=== PATIENT | male | born 1975 | race Caucasian/White ===

== ENCOUNTER 2018-05-21 09:31 | Emergency (ER) | payer MEDICAID ==
[~2018-05-21] VITALS: Ht 172.7 cm; Wt 89.6 kg
[~2018-05-21 09:31] MED LIST: ACET-8386 PO; AMOX-999 PO; COL250 PO; FLOR250 PO; INSU100S45 SUBQ; INSU100S55 SC; METF500T2 PO
--- NOTE | 2018-05-21 09:34 | NUR ---
PT AMBULATES TO BED 4
[2018-05-21 09:38] VITALS: BP 162/102
--- NOTE | 2018-05-21 09:40 | NUR ---
42/ M BIB SLEF, C/O OF RIGHT FACIAL PAIN AND SWELLING, PAIN 10/10 FOR X2 WEEKS. PAIN IS CONSTANT, DESCRIBES BURNING. PATIENT STATES HE FEELS A BALL ABOVE HIS CHEEK BONE. DENIES NVD, SOB, FEVERS, BLURRY VISION, WEAKNESS, OR DIZZINESS,DIFFICULTY SWALLOWING, OR TRUAMA TO THE FACE. PATIENT IS AOX4, STEADY GAIT, SAFETY PRECAUTIONS IN PLACE.
[2018-05-21] MEDS ORDERED: KETOROLAC 30 MG/ML VIAL IM ONE (09:45)
[2018-05-21] MEDS ORDERED: AMOXICILLIN 500 MG CAP PO ONE (09:45)
[2018-05-21] MEDS ORDERED: KETOROLAC 15 MG/ML VIAL IVP ONE (09:45)
--- NOTE | 2018-05-21 10:00 | NUR ---
DR. RIOS AWARE OF BLOOD SUGAR, NO FURTHER ACTION NEEDED.
--- NOTE | 2018-05-21 10:00 | NUR ---
Renee marinelli in [facility] - 05/21/18 [email or web address] RIOS AWARE OF BLOOD SURGERY.
--- NOTE | 2018-05-21 10:06 | NUR ---
Patient discharged with v/s stable. Written and verbal after care instructions given and explained. Patient alert, oriented and verbalized understanding of instructions. Ambulatory with steady gait. All questions addressed prior to discharge. ID band removed. Patient advised to follow up with PMD. Rx of Motrin and Amoxicillin given. Patient educated on indication of medication including possible reaction and side effects. Opportunity to ask questions provided and answered.
[2018-05-21 10:07] VITALS: BP 162/102
== END 2018-05-21 10:15 | disposition home or self-care (01) ==
LOC: MED 09:31
DX: K04.7 Periapical abscess without sinus (principal); R03.0 Elevated blood-pressure reading, without diagnosis of hypertension; E11.9 Type 2 diabetes mellitus without complications; Z79.4 Long term (current) use of insulin; Z79.2 Long term (current) use of antibiotics; Z79.891 Long term (current) use of opiate analgesic; Z79.899 Other long term (current) drug therapy
CPT/HCPCS: 82948; 96372; 99283; J1885

== ENCOUNTER 2018-11-18 23:24 | Emergency (ER) | payer MEDICAID ==
[~2018-11-18] VITALS: Ht 162.6 cm; Wt 86.2 kg
[2018-11-18 23:35] VITALS: BP 185/86
[2018-11-19] MEDS ORDERED: IBUPROFEN 600 MG TAB PO ONE (00:30)
--- NOTE | 2018-11-19 00:35 | NUR ---
ASSUMED CARE OF PT AT THIS TIME. C/O LEFT LOWER DENTAL PAIN X 1 DAY. AAOX4 WITH EVEN AND STEADY GAIT; PATIENT STATES PAIN OF 6/10; VSS; PATIENT POSITIONED FOR COMFORT; HOB ELEVATED; BEDRAILS UP X2; BED DOWN. ER MD MADE AWARE OF PT STATUS. WILL CONTINUE TO MONITOR.
--- NOTE | 2018-11-19 00:45 | NUR ---
Patient discharged with v/s stable. Written and verbal after care instructions given and explained. Patient alert, oriented and verbalized understanding of instructions. Ambulatory with steady gait. All questions addressed prior to discharge. ID band removed. Patient advised to follow up with PMD. Rx of NAPROSYN AND PENICILLIN given. Patient educated on indication of medication including possible reaction and side effects. Opportunity to ask questions provided and answered.
== END 2018-11-19 00:45 | disposition home or self-care (01) ==
LOC: MED 23:24
DX: K08.89 Other specified disorders of teeth and supporting structures (principal); E11.9 Type 2 diabetes mellitus without complications; F17.200 Nicotine dependence, unspecified, uncomplicated; F12.10 Cannabis abuse, uncomplicated; Z98.890 Other specified postprocedural states; Z79.899 Other long term (current) drug therapy; Z79.4 Long term (current) use of insulin
CPT/HCPCS: 99283

== ENCOUNTER 2018-11-19 12:05 | Emergency (ER) | payer MEDICAID ==
[~2018-11-19] VITALS: Ht 162.6 cm; Wt 86.2 kg
[2018-11-19 12:21] VITALS: BP 155/94
--- NOTE | 2018-11-19 12:33 | NUR ---
PT AMBULATED TO ER BED 10
--- NOTE | 2018-11-19 13:19 | NUR ---
DR. SHEN BEDSIDE EVALUATING PT
[2018-11-19] MEDS ORDERED: CLINDAMYCIN 150 MG CAP PO ONE (13:25)
[2018-11-19] MEDS ORDERED: ACETAMINOPHEN EXTRA STRENGTH 500 MG TAB PO ONE (13:25)
[2018-11-19 14:40] VITALS: BP 148/92
--- NOTE | 2018-11-19 14:40 | NUR ---
Patient discharged with v/s stable. Written and verbal after care instructions given and explained. Patient alert, oriented and verbalized understanding of instructions. Ambulatory with steady gait. All questions addressed prior to discharge. ID band removed. Patient advised to follow up with PMD. Rx of NORCO, CLINDAMYCIN given. Patient educated on indication of medication including possible reaction and side effects. Opportunity to ask questions provided and answered.
== END 2018-11-19 14:40 | disposition home or self-care (01) ==
LOC: MED 12:05
DX: K03.81 Cracked tooth (principal); K02.9 Dental caries, unspecified; E11.9 Type 2 diabetes mellitus without complications; F17.200 Nicotine dependence, unspecified, uncomplicated; Z98.890 Other specified postprocedural states; Z79.4 Long term (current) use of insulin; Z79.899 Other long term (current) drug therapy; Z71.6 Tobacco abuse counseling
CPT/HCPCS: 82948; 99283

== ENCOUNTER 2019-01-11 16:13 | Emergency (ER) | payer MEDICAID ==
[~2019-01-11] VITALS: Ht 165.1 cm; Wt 83.6 kg
[2019-01-11 16:42] VITALS: BP 171/90
--- NOTE | 2019-01-11 16:47 | NUR ---
[facility]
--- NOTE | 2019-01-11 19:07 | NUR ---
PT AMBULATED TO BED 12.
--- NOTE | 2019-01-11 19:10 | NUR ---
PT AMBULATED BACK TO THE LOBBY
--- NOTE | 2019-01-11 19:35 | NUR ---
PT AMBULATED TO BED 06.
--- NOTE | 2019-01-11 19:41 | NUR ---
43/M BIB SELF. AAO X4. C/O TOOTH ACHE TO LEFT LOWER TOOTH X 1 WEEK. PT DENIES N/V/D, DIFFICULTY SWALLOWING. PT TOOK IBUPROFEN 800 MG FOR PAST WEEK BUT NO RELIEF. STATES HAS BEEN TAKING PENICILLIN RX FOR ABSCESS TO LOWER LEFT TOOTH BUT NO CHANGES. STATES STILL IN PAIN. DENIES ALLERGIES. DENIES MED HX. WILL CONTINUE TO MONITOR.
[2019-01-11] MEDS ORDERED: KETOROLAC 60 MG/2 ML VIAL IM ONE (19:50)
--- NOTE | 2019-01-11 20:01 | NUR ---
SEEN AND EXAMINED BY SADAF WITH ORDERS,CARRIED OUT.
--- NOTE | 2019-01-11 20:20 | NUR ---
Patient discharged with v/s stable. Written and verbal after care instructions given and explained. Patient alert, oriented and verbalized understanding of instructions. Ambulatory with steady gait. All questions addressed prior to discharge. ID band removed. Patient advised to follow up with PMD. Rx of MOTRIN, AUGMENTIN, NORCO given. Patient educated on indication of medication including possible reaction and side effects. Opportunity to ask questions provided and answered.
== END 2019-01-11 20:20 | disposition home or self-care (01) ==
LOC: MED 16:13
DX: K04.7 Periapical abscess without sinus (principal); E11.9 Type 2 diabetes mellitus without complications; F17.200 Nicotine dependence, unspecified, uncomplicated; Z98.890 Other specified postprocedural states; Z79.899 Other long term (current) drug therapy; Z79.4 Long term (current) use of insulin
CPT/HCPCS: 96372; 99283; J1885

== ENCOUNTER 2020-11-14 15:11 | Inpatient (IN) | payer MEDICAID ==
[~2020-11-14] VITALS: Ht 160 cm; Wt 85.3 kg
[2020-11-14 15:46] VITALS: BP 128/67
[2020-11-14] MEDS ORDERED: NACL 0.9% 1,000 ML IV ONE (16:45)
--- NOTE | 2020-11-14 17:00 | NUR ---
45 Y/O FEMALE C/O RIGHT FOOT TO THE DISTAL PART OF THE FOOT PAIN 02/22 DESCRIBES ACHING NON-RADIATING X2DAYS. PALPATION PATIENT C/O PAIN. PT DENIES TRAUMA/INJURY. PT STATES +N/V, +FEVER/CHILLS. SKIN HOT AND CLAMMY TO THE TOUCH. TEMPERATURE OF 100.6 FARENHEIT. WOUND IS OPEN AND THE SIZE OF QUARTER, HAS OOZING, AND OPEN TO AIR. AAOX4. PMH: KIERSTEN HERRON
--- NOTE | 2020-11-14 17:03 | NUR ---
patient ambulated to bed 2
--- NOTE | 2020-11-14 17:05 | NUR ---
patient taken to xray
[2020-11-14] MEDS ORDERED: MORPHINE SULFATE 4 MG/ML SYR IVP ONE (17:15)
[2020-11-14] MEDS ORDERED: ACETAMINOPHEN EXTRA STRENGTH 500 MG TAB PO ONE (17:15)
[2020-11-14] MEDS ORDERED: VANCOMYCIN 1,000 MG in DEXTROSE 5% 250 ML IV ONE (17:15)
[2020-11-14] MEDS ORDERED: ONDANSETRON 4 MG/2 ML VIAL IVP ONE (17:15)
[2020-11-14] MEDS ORDERED: cefTRIAXone 1,000 MG VIAL ONE (17:24)
[2020-11-14 17:31] LABS: HEMATOCRIT 40.6 % (36-52); HEMOGLOBIN 14.2 g/dL (12.0-18.0); MEAN CORPUSCULAR HEMOGLOBIN 32 pg (27-31); MEAN CORPUSCULAR HGB CONC 35 g/dL (33-37); MEAN CORPUSCULAR VOLUME 91.6 fL (80-94); PLATELET COUNT (AUTO) 209 K/uL (140-450); RED BLOOD CELL COUNT(AUTO) 4.43 MIL/uL (4.20-6.10); RED CELL DISTRIBUTION WIDTH 13.7 % (11.6-13.7); WHITE BLOOD COUNT (AUTO) 22.9 K/uL (4.8-10.8)
[2020-11-14 17:49] LABS: ALBUMIN 4.1 g/dL (3.4-5.0); ANION GAP 14.2 (8-16); CARBON DIOXIDE 26.9 mmol/L (21-32); CREATININE 1.2 mg/dL (0.6-1.3); POTASSIUM 4.1 mmol/L (3.5-5.1); TOTAL BILIRUBIN 3.1 mg/dL (0.0-1.0)
[2020-11-14 18:02] LABS: LYMPHOCYTES % (MANUAL) 20 % (20-46); MONOCYTES % (MANUAL) 2 % (5-12); MYELOCYTES % 1 % (0-0); PROMYELOCYTES % 1 % (0-0)
--- NOTE | 2020-11-14 18:11 | NUR ---
Patient appears to be resting comfortably in bed. Vital Signs within normal limits. Respirations even and unlabored. Safety measures in place. Will continue to monitor patient
[2020-11-14] MEDS ORDERED: VANCOMYCIN 1,000 MG VIAL ONE (18:31)
--- NOTE | 2020-11-14 19:16 | NUR ---
Pt report given to Ramon RN and Darryl RN. Transfer of care at this time.
--- NOTE | 2020-11-14 22:00 | NUR ---
PT. IS RESTING WITH EYES CLOSED COMFORTABLY, VOICES NO COMPLAINTS.
[2020-11-14] MEDS ORDERED: VANCOMYCIN PER PHARMACY MC PRN (22:10)
[2020-11-14] MEDS ORDERED: HYDROcodone/APAP 5/325 MG 1 TAB TAB PO PRN (22:10)
[2020-11-14] MEDS ORDERED: MORPHINE SULFATE 2 MG/ML SYR IVP PRN (22:10)
[2020-11-14] MEDS ORDERED: DEXTROSE 50% 50 ML SYR IVP PRN (22:10)
[2020-11-14] MEDS ORDERED: DOCUSATE SODIUM 100 MG GELCAP PO PRN (22:10)
[2020-11-14] MEDS ORDERED: MAG SULF 2000 MG/WATER PREMIX 50 ML IV PRN (22:10)
[2020-11-14] MEDS ORDERED: ONDANSETRON 4 MG/2 ML VIAL IM/IVP PRN (22:10)
[2020-11-14] MEDS ORDERED: POTASSIUM CHLORIDE 40 MEQ, LIDOCAINE MPF 1% 25 MG in NACL 0.9% 250 ML IV PRN (22:10)
[2020-11-14] MEDS ORDERED: SODIUM PHOS / POTASSIUM PHOS 1 PKT PDR PO PRN (22:10)
[2020-11-14] MEDS ORDERED: ACETAMINOPHEN 325 MG TAB PO PRN (22:10)
[2020-11-14] MEDS: NACL 0.9% 1,000 ML IV SCH (22:59)
--- NOTE | 2020-11-14 23:47 | NUR ---
SPOKE WITH OTONIEL GARZA (SISTER) FOR UPDATE ON PT. ASKED TO BE UPDATED IF THERE ARE ANY CHANGES, PHONE #:
[2020-11-15 00:19] LABS: APPEARANCE,URINE CLEAR (CLEAR); BILIRUBIN,URINE NEGATIVE (NEGATIVE); BLOOD, URINE TRACE-L (NEGATIVE); COLOR,URINE YELLOW (YELLOW); LEUKOCYTE ESTERASE ,URINE NEGATIVE (NEGATIVE); NITRITE, URINE NEGATIVE (NEGATIVE); UGLUCOSE 3+ (NEGATIVE)
[2020-11-15 00:39] LABS: RBC,URINE 0-5 /HPF (0-5); WBC,URINE 0-5 /HPF (0-5)
[2020-11-15 00:42] LABS: MAGNESIUM 1.5 mg/dL (1.8-2.4); PHOSPHORUS 2.5 mg/dL (2.5-4.9)
[2020-11-15 00:54] LABS: BARBITURATE, URINE NEGATIVE ng/ml (NEG <=200); BENZODIAZEPINE, URINE NEGATIVE ng/mL (NEG <=200); CANNABINOID, URINE NEGATIVE ng/mL (NEG <=50); COCAINE, URINE NEGATIVE ng/mL (NEG <=300); OPIATE, URINE POSITIVE ng/mL (NEG <=2000); PHENCYCLIDINE SCREEN,URINE NEGATIVE ng/mL (NEG <=25)
--- NOTE | 2020-11-15 02:00 | NUR ---
Patient appears to be resting comfortably in bed. Vital Signs within normal limits. Respirations even and unlabored.
[2020-11-15] MEDS ORDERED: VANCOMYCIN 1GM/DEXT 5% PREMIX 200 ML IV ONE (06:00)
--- NOTE | 2020-11-15 06:15 | NUR ---
MORNING LABS WERE DRAWN, GIVEN TO LAB, HANDED TO CLS.
[2020-11-15 06:30] LABS: MEAN CORPUSCULAR HEMOGLOBIN 32 pg (27-31); RED BLOOD CELL COUNT(AUTO) 4.02 MIL/uL (4.20-6.10); RED CELL DISTRIBUTION WIDTH 13.2 % (11.6-13.7)
[2020-11-15 06:34] LABS: BASOPHILS # (AUTO) 0.1 K/uL (0.00-0.22); BASOPHILS % (AUTO) 0.6 % (0.0-2.0); EOSINOPHILS # (AUTO) 0.2 K/uL (0-0.4); EOSINOPHILS % (AUTO) 1.4 % (0.0-4.0); HEMATOCRIT 36.5 % (36-52); HEMOGLOBIN 12.8 g/dL (12.0-18.0); LYMPHOCYTES # (AUTO) 3.5 K/uL (2.0-11.5); LYMPHOCYTES % (AUTO) 21.3 % (20.5-51.1); MEAN CORPUSCULAR HGB CONC 35 g/dL (33-37); MEAN CORPUSCULAR VOLUME 90.8 fL (80-94); MONOCYTES # (AUTO) 1.7 K/uL (0.8-1.0); NEUTROPHILS # (AUTO) 11.1 K/uL (1.8-7.7); NEUTROPHILS % (AUTO) 66.7 % (42.2-75.2); PLATELET COUNT (AUTO) 171 K/uL (140-450); WHITE BLOOD COUNT (AUTO) 16.6 K/uL (4.8-10.8)
[2020-11-15 06:37] LABS: ANION GAP 8.9 (8-16); CARBON DIOXIDE 29.9 mmol/L (21-32); CREATININE 0.9 mg/dL (0.6-1.3); POTASSIUM 3.8 mmol/L (3.5-5.1)
--- NOTE | 2020-11-15 07:15 | NUR ---
GIVEN REPORT TO PADMINI ARRINGTON. TRANSFER OF CARE AT THIS TIME.
[2020-11-15] MEDS ORDERED: VANCOMYCIN 1,000 MG VIAL ONE (07:33)
--- NOTE | 2020-11-15 07:53 | NUR ---
Patient will be admitted to care of Dr Fuentes. Admited to tele. Will go to room 119A. Belongings list completed. Report to Eugenio WASHINGTON.
--- NOTE | 2020-11-15 07:55 | NUR ---
RECEIVED PATIENT REPORT FROM ER NURSE VIA TELEPHOHE. AWAITING FOR PATIENT TO ARRIVE IN THE UNIT
[2020-11-15 08:07] VITALS: BP 121/66
--- NOTE | 2020-11-15 08:07 | NUR ---
RECEIVED PATIENT FROM ER NURSE VIA JAMES. PATIENT WAS AOX4, ABLE TO MAKE NEEDS KNOWN. RESPIRATIONS EVEN AND UNLABORED. ON ROOM AIR AND NO RESPIRATORY DISTRESS NOTED. SKIN IS WARM AND DRY. NOTED SKIN ULCER ON RIGHT FOOT. NO DRAINAGE NOTED. WOUND ASSESSMENT COMPLETED. PHOTOS WERE TAKEN. ABDOMEN SOFT, FLAT, AND NON-DISTENDED. BOWEL SOUNDS ACTIVE IN ALL QUADRANTS. PATIENT DENIES PAIN AT THE MOMENT. PLAN OF CARE DISCUSSED AND VERBALIZED UNDERSTANDING. SAFETY PRECAUTIONS IN PLACE. BED IN LOW POSITION. CALL LIGHT WITHIN REACH. WILL CONTINUE TO MONITOR.
--- NOTE | 2020-11-15 08:10 | NUR ---
PT TAKEN TO FLOOR AT THIS TIME
[2020-11-15] MEDS: BLOOD GLUCOSE MONITORING 1 DEV DEV FS SCH ×4 (08:30→20:48)
[2020-11-15] MEDS: INSULIN LISPRO SLIDING SCALE 100 UNITS/ML VIAL SUBQ PRN ×4 (09:39→20:52)
--- NOTE | 2020-11-15 09:39 | NUR ---
BLOOD GLUCOSE WAS AT 300. INSULIN COVERAGE NEEDED. ADMINISTERED 6 UNITS OF INSULIN SQ PER MD ORDERED.
--- NOTE | 2020-11-15 10:00 | NUR ---
ALL SCHEDULED MEDS GIVEN. PT IS STABLE. NO DISTRESS NOTED. WILL CONTINUE TO MONITOR.
--- NOTE | 2020-11-15 11:56 | NUR ---
BLOOD GLUCOSE CHECK IS 248. INSULIN COVERAGE NEEDED. ADMINISTERED 4 UNITS OF INSULIN SQ PER MD ORDERED.
--- NOTE | 2020-11-15 14:30 | NUR ---
CHECKED ON PATIENT. PATIENT IS STABLE. NO DISTRESS NOTED. WILL CONTINUE TO MONITOR
[2020-11-15 16:00] VITALS: BP 142/73
--- NOTE | 2020-11-15 17:50 | NUR ---
CHECKED ON PATIENT. PATIENT IS STABLE. DENIES PAIN AND NO DISTRESS NOTED. WILL CONTINUE TO MONITOR
[2020-11-15] MEDS: VANCOMYCIN HCL 1.25 GM in DEXTROSE 5% 250 ML IV SCH (18:11)
--- NOTE | 2020-11-15 19:30 | NUR ---
ENDORSED TO TOOL TECHNICIAN NURSE FOR CONTINUITY OF CARE. PT IS STABLE.
[2020-11-15 20:00] VITALS: BP 135/69
--- NOTE | 2020-11-15 20:00 | NUR ---
RECEIVED REPORT FROM DAY RN REGARDING THE PATIENT FOR CONTINUITY OF CARE. RECEIVED PT A/A/OX4, LAYING IN BED WATCHING TV. PATIENT NOT IN ANY DISTRESS AND NO COMPLAIN AT THIS TIME. IVF INFUSING ORDERED. FALL PRECAUTION IMPLEMENTED. INSTRUCTED TO CALL FOR ASSISTANCE AT ALL TIMES. PT VERBALIZED UNDERSTANDING WITH THE POC.CALL LIGHT WITHIN REACH. WILL CONTINUE POC AND MONITORING.
[2020-11-15] MEDS ORDERED: INSULIN LANTUS 100 UNITS/ML 10 ML VIAL SUBQ SCH (21:00)
--- NOTE | 2020-11-15 22:00 | NUR ---
ADMINISTERED THE SCHEDULED MEDICATION ORDERED AND TEACHING PROVIDED. NO ADVERSE DRUG REACTION NOTED AND NO COMPLAIN FROM THE PATIENT. CALL LIGHT WITHIN REACH. WILL CONTINUE TO OBSERVE.
[2020-11-15] MEDS: NACL 0.9% 1,000 ML IV SCH (22:10)
--- NOTE | 2020-11-16 | NUR ---
PATIENT ASLEEP AT THIS TIME. VISIBLE CHEST RISE AND FALL NOTED. SAFETY MEASURES IN PLACED.
--- NOTE | 2020-11-16 01:39 | NUR ---
PATIENT IV ON THE LEFT AC GOT PULLED OUT. DC/D IV, CANNULA INTACT. PLACED A NEW IV ON THE RIGHT FOREARM GAUGE 20. CONTINUED THE IVF ORDERED. Addendum: 11/16/20 at 0142 by Rolanda Nesbitt RN RN PATIENT IV ON THE RIGHT AC GOT PULLED OUT. DC/D IV, CANNULA INTACT. PLACED A NEW IV ON THE RIGHT FOREARM GAUGE 20. CONTINUED THE IVF ORDERED.
--- NOTE | 2020-11-16 02:30 | NUR ---
PATIENTR ASLEEP AT THIS TIME. VISIBLE CHEST RISE AND FALL NOTED. NOT IN ANY DISTRESS. SAFETY MEASURES IN PLACED.
[2020-11-16 04:00] VITALS: BP 132/73
--- NOTE | 2020-11-16 04:00 | NUR ---
PATIENT VITAL SIGNS STABLE, AFEBRILE, SATING 97% ON RA. NO COMPLAIN OF PAIN AT THIS TIME. CALL LIGHT WITHIN REACH.
--- NOTE | 2020-11-16 06:28 | NUR ---
PATIENT STABLE. NO ACUTE EVENT THROUGHOUT THE NIGHT. NO COMPLAIN AT THIS TIME. NOT IN ANY DISTRESS. ALL NEEDS ATTENDED. WILL ENDORSE THE PATIENT TO THE ONCOMING RN FOR CONTINUITY OF CARE. CALL LIGHT WITHIN REACH.
[2020-11-16 06:41] LABS: BASOPHILS % (AUTO) 0.1 % (0.0-2.0); EOSINOPHILS # (AUTO) 0.3 K/uL (0-0.4); EOSINOPHILS % (AUTO) 2.3 % (0.0-4.0); HEMATOCRIT 36.3 % (36-52); HEMOGLOBIN 12.8 g/dL (12.0-18.0); LYMPHOCYTES # (AUTO) 3.5 K/uL (2.0-11.5); MEAN CORPUSCULAR HEMOGLOBIN 32 pg (27-31); MEAN CORPUSCULAR HGB CONC 35 g/dL (33-37); MEAN CORPUSCULAR VOLUME 91.3 fL (80-94); MONOCYTES # (AUTO) 1.3 K/uL (0.8-1.0); NEUTROPHILS # (AUTO) 8.8 K/uL (1.8-7.7); NEUTROPHILS % (AUTO) 63.6 % (42.2-75.2); PLATELET COUNT (AUTO) 194 K/uL (140-450); RED BLOOD CELL COUNT(AUTO) 3.98 MIL/uL (4.20-6.10); RED CELL DISTRIBUTION WIDTH 13.3 % (11.6-13.7); WHITE BLOOD COUNT (AUTO) 13.9 K/uL (4.8-10.8)
[2020-11-16] MEDS ORDERED: VANCOMYCIN 1,000 MG VIAL ONE (06:43)
[2020-11-16] MEDS ORDERED: VANCOMYCIN 500 MG VIAL ONE (06:43)
[2020-11-16] MEDS: BLOOD GLUCOSE MONITORING 1 DEV DEV FS SCH ×4 (06:51→21:01)
[2020-11-16] MEDS: VANCOMYCIN HCL 1.25 GM in DEXTROSE 5% 250 ML IV SCH ×2 (06:51→18:05)
[2020-11-16] MEDS: INSULIN LISPRO SLIDING SCALE 100 UNITS/ML VIAL SUBQ PRN ×4 (06:54→21:03)
[2020-11-16 06:58] LABS: ANION GAP 12.1 (8-16); CARBON DIOXIDE 26.2 mmol/L (21-32); CREATININE 0.9 mg/dL (0.6-1.3); POTASSIUM 3.3 mmol/L (3.5-5.1)
--- NOTE | 2020-11-16 07:34 | NUR ---
ENDORSED PATIENT TO DAY PADMINI GAFFNEY FOR CONTINUITY OF CARE. PATIENT STABLE. SIGNING OFF.
--- NOTE | 2020-11-16 07:36 | NUR ---
RECEIVED BEDSIDE REPORT FOR CONTINUITY OF CARE. PT A/A/OX4, LAYING IN BED WATCHING TV. RESPIRATIONS EVEN AND UNLABORED. PATIENT NOT IN ANY DISTRESS AND NO COMPLAIN AT THIS TIME. IVF INFUSING ORDERED. PLAN OF CARE DISCUSSED. FALL PRECAUTION IMPLEMENTED. INSTRUCTED TO CALL FOR ASSISTANCE AT ALL TIMES. CALL LIGHT WITHIN REACH. WILL CONTINUE POC AND MONITORING.
[2020-11-16 08:00] VITALS: BP 103/59
--- NOTE | 2020-11-16 09:00 | NUR ---
NO SCHEDULED MEDS GIVEN. PT IS STABLE. NO DISTRESS NOTED. WILL CONTINUE TO MONITOR.
--- NOTE | 2020-11-16 10:50 | NUR ---
PODIATRY MD AT PATIENT'S BEDSIDE DISCUSSING RISK AND BENEFITS OF DEBRIDEMENT PROCEDURE FOR RIGHT FOOT ULCER. CONSENT FORMED OBTAINED AND SIGNED BY MD AND PATIENT.
--- NOTE | 2020-11-16 11:47 | NUR ---
BLOOD GLUCOSE CHECK IS 312. INSULIN COVERAGE NEEDED. ADMINISTERED 8 UNITS OF INSULIN SQ PER MD ORDERED.
--- NOTE | 2020-11-16 14:00 | NUR ---
CHECKED ON PATIENT. PT IS STABLE. NO DISTRESS NOTED. WILL CONTINUE TO MONITOR.
[2020-11-16 16:00] VITALS: BP 156/84
[2020-11-16] MEDS ORDERED: POTASSIUM CHLORIDE 10 MEQ TABER PO SCH (16:45)
--- NOTE | 2020-11-16 17:16 | NUR ---
BLOOD GLUCOSE CHECK WAS 294. INSULIN COVERAGE NEEDED. ADMINISTERED 6 UNITS OF INSULIN PER MD ORDERED.
--- NOTE | 2020-11-16 19:30 | NUR ---
ENDORSED TO BLOOM CONVEYOR OPERATOR NURSE FOR CONTINUITY OF CARE. PT IS STABLE.
--- NOTE | 2020-11-16 19:31 | NUR ---
RECD. RESTING IN BED, AWAKE, A/OX4. RESPIRATION EVEN AND UNLABORED. IVPB VANCOMYCIN INFUSING AT 125 ML/HR, RIGHT FOREARM G20. RIGHT FOOT SURGICAL WOUND, S/P WOUND DEBRIDEMENT COVERED WITH DRESSING AND PILI WRAPPED BANDAGE DRY AND INTACT. RIGHT TOES WITH <3 CAPILLARY REFILL, PINK COLOR, (+) FOR MOVEMENT. MEDICATIONS FOR THE NIGHT DISCUSSED WITH PATIENT. VERBALIZED UNDERSTANDING. DENIES PAIN 0/10.
[2020-11-16 20:00] VITALS: BP 123/63
[2020-11-16] MEDS ORDERED: INSULIN LANTUS 100 UNITS/ML 10 ML VIAL SUBQ SCH (21:00)
--- NOTE | 2020-11-16 21:09 | NUR ---
Patient's Plan of Care was discussed and reviewed with SENIOR RESEARCH MANAGER: RODDY LOVE
--- NOTE | 2020-11-16 22:00 | NUR ---
SNACK FOR THE NIGHT GIVEN. ATE 100%.
[2020-11-16] MEDS: NACL 0.9% 1,000 ML IV SCH (22:10)
[2020-11-17] VITALS: BP 130/65
--- NOTE | 2020-11-17 | NUR ---
SLEEPING COMFORTABLY IN BED.
--- NOTE | 2020-11-17 02:00 | NUR ---
RESPIRATION EVEN AND UNLABORED, STILL SLEEPING COMFORTABLY IN BED.
[2020-11-17 04:00] VITALS: BP 136/77
--- NOTE | 2020-11-17 04:00 | NUR ---
AWAKE, SITTING IN BED. RESPIRATION EVEN AND UNLABORED. NO COMPLAINT OF PAIN 0/10.
--- NOTE | 2020-11-17 05:04 | NUR ---
BLOOD SUGAR CHECKED, 264. HUMALOG SLIDING SCALE GIVEN PER MD ORDER. DIETARY TEACHINGS GIVEN. PATIENT STILL DRINKS SODA DAILY. EXPLAINED THE IMPORTANCE OF DIET AND EXERCISE IN THE CONTROL OF DIABETES. NEEDS REINFORCEMENTS. Addendum: 11/17/20 at 0507 by Brenda Baca LVN TIME OF BLOOD SUGAR CHECKED AND NOTES SHOULD BE 11/16/20 AT 2101.
[2020-11-17 05:16] LABS: BASOPHILS % (AUTO) 0.3 % (0.0-2.0); EOSINOPHILS # (AUTO) 0.5 K/uL (0-0.4); EOSINOPHILS % (AUTO) 4.2 % (0.0-4.0); HEMATOCRIT 37.5 % (36-52); LYMPHOCYTES # (AUTO) 4.2 K/uL (2.0-11.5); LYMPHOCYTES % (AUTO) 32.5 % (20.5-51.1); MEAN CORPUSCULAR HEMOGLOBIN 32 pg (27-31); MEAN CORPUSCULAR HGB CONC 35 g/dL (33-37); MEAN CORPUSCULAR VOLUME 92.5 fL (80-94); MONOCYTES # (AUTO) 1.2 K/uL (0.8-1.0); MONOCYTES % (AUTO) 9.5 % (1.7-9.3); NEUTROPHILS % (AUTO) 53.5 % (42.2-75.2); PLATELET COUNT (AUTO) 235 K/uL (140-450); RED BLOOD CELL COUNT(AUTO) 4.05 MIL/uL (4.20-6.10); RED CELL DISTRIBUTION WIDTH 13.2 % (11.6-13.7)
[2020-11-17 05:34] LABS: CARBON DIOXIDE 28.8 mmol/L (21-32); POTASSIUM 3.8 mmol/L (3.5-5.1)
[2020-11-17] MEDS: BLOOD GLUCOSE MONITORING 1 DEV DEV FS SCH ×2 (06:46→11:40)
--- NOTE | 2020-11-17 06:46 | NUR ---
BLOOD SUGAR CHECKED - 186, HUMALOG SLIDING SCALE COVERAGE GIVEN. PATIENT IS ASYMPTOMATIC.
[2020-11-17] MEDS: INSULIN LISPRO SLIDING SCALE 100 UNITS/ML VIAL SUBQ PRN ×2 (06:47→11:45)
[2020-11-17] MEDS: VANCOMYCIN HCL 1.25 GM in DEXTROSE 5% 250 ML IV SCH (07:01)
--- NOTE | 2020-11-17 07:24 | NUR ---
CONDITION REMAIN STABLE. ENDORSED TO AM SHIFT NURSE FOR CONTINUITY OF CARE.
--- NOTE | 2020-11-17 07:25 | NUR ---
RECEIVED BEDSIDE REPORT FROM PROGRAM STRATEGIST NURSE. PT IS LAYING IN BED AWAKE, ALERT AND ORIENTED X4. IV SITE IS INTACT ON R WRIST 20 GAUGE. PT IS IN RA AND STABLE. WILL CONTINUE TO MONITOR.
[2020-11-17 08:00] VITALS: BP 162/81
--- NOTE | 2020-11-17 09:45 | NUR ---
PT IS IN AWAKE AND IN BED WATCHING TELEVISION. HE IS STABLE AND IN RA. PT STATES HE HAS NO PAIN. WILL CONTINUE TO MONITOR.
[2020-11-17] MEDS ORDERED: LANC-947 MC (10:50)
[2020-11-17] MEDS ORDERED: [UNRECOGNIZED DRUG - CODE] MC (10:50)
[2020-11-17] MEDS ORDERED: LANTUS SUBQ (10:50)
[2020-11-17] MEDS ORDERED: HUMSLIDE SUBQ (10:50)
[2020-11-17] MEDS ORDERED: AMOX-1000 PO (10:50)
[2020-11-17] MEDS ORDERED: GLUC-805 FS (10:50)
[2020-11-17] MEDS ORDERED: INSU-656 MC (10:50)
--- NOTE | 2020-11-17 11:45 | NUR ---
PT IS SITTING IN BED WATCHING TELEVISION. PT IS STABLE AND IN RA. WILL CONTINUE TO MONITOR.
--- NOTE | 2020-11-17 13:05 | NUR ---
PT WAS DISCHARGED. PT WAS WHEELED OUT IN WHEELCHAIR WITH SISTER WAITING FOR HIM IN CAR. PT WAS STABLE. Addendum: 11/17/20 at 1549 by Sangeeta Khan RN RN CORRECT TIME FOR DISCHARGE WAS 1505.
--- NOTE | 2020-11-17 14:00 | NUR ---
PT IS STABLE AND SITTING IN BED. PT'S SISTER IS AT BEDSIDE. PT IS ALERT AND ORIENTED. WILL CONTINUE TO MONITOR.
--- NOTE | 2020-11-18 08:47 | NUR ---
Wound consult not done, pt. discharged
== END 2020-11-17 15:05 | disposition home or self-care (01) | DRG 720 ==
LOC: MED 15:11 → MTU 18:01 → UNDODISIN 11-17 15:05
PROVIDERS: ADMIT Hospitalist; ATTEND Hospitalist
PROC: 0JBQ0ZZ Excision of Right Foot Subcutaneous Tissue and Fascia, Open Approach (ICD-10-PCS; principal; 2020-11-16)
DX: A41.9 Sepsis, unspecified organism (principal); E11.42 Type 2 diabetes mellitus with diabetic polyneuropathy; E11.51 Type 2 diabetes mellitus with diabetic peripheral angiopathy without gangrene; E11.621 Type 2 diabetes mellitus with foot ulcer; L03.115 Cellulitis of right lower limb; L97.519 Non-pressure chronic ulcer of other part of right foot with unspecified severity; E87.1 Hypo-osmolality and hyponatremia; E11.65 Type 2 diabetes mellitus with hyperglycemia; E80.6 Other disorders of bilirubin metabolism; E87.6 Hypokalemia; Z79.4 Long term (current) use of insulin; Z79.899 Other long term (current) drug therapy; Z71.6 Tobacco abuse counseling
CPT/HCPCS: 36415; 73630; 76705; 80048; 80053; 80202; 80305; 81001; 82948; 83036; 83605; 83735; 84100; 85025; 85651; 86140; 87040; 87070; 87075; 87081; 87205; 93925; 93970; 96365; 96366; 96367; 96375; 99285; J0696; J1815; J2270; J2405; J3370; J7060

== ENCOUNTER 2023-06-24 15:25 | Inpatient (IN) | payer MEDICAID, OTHER ==
[~2023-06-24] VITALS: Ht 167.6 cm; Wt 79.5 kg
[~2023-06-24 15:25] MED LIST changes: -ACET-8386 PO; +AMOX-1000 PO; -AMOX-999 PO; -COL250 PO; -FLOR250 PO; +GLUC-805 FS; +HUMSLIDE SUBQ; +INSU-656 MC; -INSU100S45 SUBQ; -INSU100S55 SC; +LANC-947 MC; +LANTUS SUBQ; -METF500T2 PO; +[UNRECOGNIZED DRUG - CODE] MC
[2023-06-24 15:28] VITALS: BP 112/57; PULSE 69; RESP 15; TEMP 97.8; O2SAT 98
[2023-06-24 17:01] LABS: BASOPHILS % (AUTO) 0.4 % (0.0-2.0); EOSINOPHILS # (AUTO) 0.3 K/uL (0-0.4); EOSINOPHILS % (AUTO) 3.2 % (0.0-4.0); HEMATOCRIT 38.9 % (36-52); HEMOGLOBIN 13.2 g/dL (12.0-18.0); LYMPHOCYTES # (AUTO) 4.1 K/uL (2.0-11.5); LYMPHOCYTES % (AUTO) 42.4 % (20.5-51.1); MEAN CORPUSCULAR HEMOGLOBIN 31 pg (27-31); MEAN CORPUSCULAR HGB CONC 34 g/dL (33-37); MEAN CORPUSCULAR VOLUME 92.5 fL (80-94); MONOCYTES # (AUTO) 0.8 K/uL (0.8-1.0); MONOCYTES % (AUTO) 7.8 % (1.7-9.3); NEUTROPHILS # (AUTO) 4.5 K/uL (1.8-7.7); NEUTROPHILS % (AUTO) 46.2 % (42.2-75.2); PLATELET COUNT (AUTO) 193 K/uL (140-450); RED CELL DISTRIBUTION WIDTH 16.5 % (11.6-13.7); WHITE BLOOD COUNT (AUTO) 9.8 K/uL (4.8-10.8)
[2023-06-24 17:11] LABS: ANION GAP 13.6 (8-16); CALCIUM 9.2 mg/dL (8.5-10.1); CARBON DIOXIDE 25.4 mmol/L (21-32); CREATININE 2.4 mg/dL (0.6-1.3)
[2023-06-24 17:14] LABS: INR 0.99 (0.8-1.2); PARTIAL THROMBOPLASTIN TIME 23.7 secs (22-35.6); PROTHROMBIN TIME 10.4 secs (10.8-13.4)
[2023-06-24 17:17] LABS: ALBUMIN 3.6 g/dL (3.4-5.0); BILIRUBIN,DIRECT 0.1 mg/dL (0.0-0.3); TOTAL BILIRUBIN 0.6 mg/dL (0.0-1.0); TOTAL PROTEIN, SERUM 8.8 g/dL (6.4-8.2)
[2023-06-24] MEDS ORDERED: LISI20TA29 PO (18:00)
[2023-06-24] MEDS ORDERED: METF-352 PO (18:00)
[2023-06-24] MEDS: NACL 0.9% 1,000 ML IV ONE (18:09)
[2023-06-24] MEDS: PANTOPRAZOLE 40 MG INJ VIAL IVP ONE (18:48)
[2023-06-24] MEDS ORDERED: ACETAMINOPHEN 325 MG TAB PO PRN (19:20)
[2023-06-24] MEDS ORDERED: MAG SULF 2000 MG/WATER PREMIX 50 ML IV PRN (19:20)
[2023-06-24] MEDS ORDERED: POTASSIUM CHLORIDE 10 MEQ TABER PO PRN (19:20)
[2023-06-24] MEDS: NACL 0.9% 1,000 ML IV SCH (19:20)
[2023-06-24] MEDS ORDERED: HYDROcodone/APAP 5/325 MG 1 TAB TAB PO PRN (19:20)
[2023-06-24] MEDS ORDERED: MORPHINE SULFATE 4 MG/ML SYR IVP PRN (19:20)
[2023-06-24] MEDS ORDERED: KCL 20 MEQ IN 100 mL PREMIX 200 ML IV PRN (19:20)
[2023-06-24 19:36] LABS: APPEARANCE,URINE TURBID (CLEAR); BILIRUBIN,URINE NEGATIVE (NEGATIVE); BLOOD, URINE NEGATIVE (NEGATIVE); COLOR,URINE YELLOW (YELLOW); LEUKOCYTE ESTERASE ,URINE NEGATIVE (NEGATIVE); NITRITE, URINE NEGATIVE (NEGATIVE); PROTEIN,URINE TRACE (NEGATIVE); UGLUCOSE NEGATIVE (NEGATIVE); UROBILINOGEN,URINE 0.2 EU/dL (0.2 - 1)
[2023-06-25 06:57] LABS: BASOPHILS % (AUTO) 0.2 % (0.0-2.0); EOSINOPHILS # (AUTO) 0.4 K/uL (0-0.4); HEMATOCRIT 35.6 % (36-52); HEMOGLOBIN 11.9 g/dL (12.0-18.0); LYMPHOCYTES # (AUTO) 3.9 K/uL (2.0-11.5); LYMPHOCYTES % (AUTO) 40.1 % (20.5-51.1); MEAN CORPUSCULAR HEMOGLOBIN 31 pg (27-31); MEAN CORPUSCULAR HGB CONC 34 g/dL (33-37); MEAN CORPUSCULAR VOLUME 93.5 fL (80-94); MONOCYTES # (AUTO) 0.8 K/uL (0.8-1.0); MONOCYTES % (AUTO) 7.8 % (1.7-9.3); NEUTROPHILS # (AUTO) 4.7 K/uL (1.8-7.7); NEUTROPHILS % (AUTO) 47.9 % (42.2-75.2); PLATELET COUNT (AUTO) 168 K/uL (140-450); RED BLOOD CELL COUNT(AUTO) 3.81 MIL/uL (4.20-6.10); RED CELL DISTRIBUTION WIDTH 16.7 % (11.6-13.7); WHITE BLOOD COUNT (AUTO) 9.7 K/uL (4.8-10.8)
[2023-06-25] MEDS: NACL 0.9% 500 ML IV SCH (08:10)
[2023-06-25 09:57] VITALS: PULSE 62; RESP 18; O2SAT 96
[2023-06-25 12:00] VITALS: BP 144/71; PULSE 58; PULSE 62; RESP 18; TEMP 97.2; O2SAT 98
[2023-06-25 12:00] LABS: CALCIUM 8.7 mg/dL (8.5-10.1); CARBON DIOXIDE 19.2 mmol/L (21-32); CREATININE 1.9 mg/dL (0.6-1.3); POTASSIUM 5.2 mmol/L (3.5-5.1); TOTAL BILIRUBIN 0.5 mg/dL (0.0-1.0); TOTAL PROTEIN, SERUM 7.5 g/dL (6.4-8.2)
[2023-06-25 16:00] VITALS: BP 134/77; PULSE 60; PULSE 64; RESP 18; TEMP 97.2; O2SAT 98
[2023-06-25 20:00] VITALS: BP 128/71; PULSE 63; RESP 18; TEMP 96.9; O2SAT 97
[2023-06-25 20:06] VITALS: PULSE 60
[2023-06-26] VITALS: BP 118/78; PULSE 55; RESP 18; TEMP 97; O2SAT 97
[2023-06-26 00:09] VITALS: PULSE 52
[2023-06-26 04:00] VITALS: BP 125/69; PULSE 53; PULSE 54; RESP 18; TEMP 97.2; O2SAT 97
[2023-06-26 06:30] LABS: BASOPHILS % (AUTO) 0.3 % (0.0-2.0); EOSINOPHILS # (AUTO) 0.3 K/uL (0-0.4); EOSINOPHILS % (AUTO) 4.7 % (0.0-4.0); HEMATOCRIT 35.6 % (36-52); HEMOGLOBIN 12.2 g/dL (12.0-18.0); LYMPHOCYTES # (AUTO) 3.2 K/uL (2.0-11.5); LYMPHOCYTES % (AUTO) 45.4 % (20.5-51.1); MEAN CORPUSCULAR HEMOGLOBIN 31 pg (27-31); MEAN CORPUSCULAR HGB CONC 34 g/dL (33-37); MEAN CORPUSCULAR VOLUME 91.4 fL (80-94); MONOCYTES # (AUTO) 0.6 K/uL (0.8-1.0); MONOCYTES % (AUTO) 8.7 % (1.7-9.3); NEUTROPHILS # (AUTO) 2.9 K/uL (1.8-7.7); NEUTROPHILS % (AUTO) 40.9 % (42.2-75.2); PLATELET COUNT (AUTO) 167 K/uL (140-450); RED BLOOD CELL COUNT(AUTO) 3.89 MIL/uL (4.20-6.10); RED CELL DISTRIBUTION WIDTH 16.2 % (11.6-13.7); WHITE BLOOD COUNT (AUTO) 7.2 K/uL (4.8-10.8)
[2023-06-26 06:58] LABS: ALBUMIN 3.1 g/dL (3.4-5.0); ANION GAP 15.5 (8-16); CALCIUM 9.1 mg/dL (8.5-10.1); CARBON DIOXIDE 22.2 mmol/L (21-32); CREATININE 1.3 mg/dL (0.6-1.3); MAGNESIUM 1.7 mg/dL (1.8-2.4); POTASSIUM 4.7 mmol/L (3.5-5.1); TOTAL PROTEIN, SERUM 6.8 g/dL (6.4-8.2)
[2023-06-26 08:00] VITALS: BP 128/56; PULSE 53; PULSE 55; RESP 18; TEMP 97.3; O2SAT 96
[2023-06-26] MEDS: MAGNESIUM OXIDE 400 MG TAB PO PRN (08:30)
[2023-06-26] MEDS ORDERED: LACTULOSE 20 GM/30 ML UDC PO PRN (11:45)
[2023-06-26 12:00] VITALS: BP 117/58; PULSE 58; PULSE 69; RESP 18; TEMP 97.4; O2SAT 98
== END 2023-06-26 14:35 | disposition home or self-care (01) | DRG 241 ==
LOC: MED 15:25 → MMU 19:16 → MTU 06-25 06:29
PROVIDERS: ADMIT Student in an Organized Health Care Education/Training Program; ATTEND Student in an Organized Health Care Education/Training Program
DX: K29.01 Acute gastritis with bleeding (principal); N17.0 Acute kidney failure with tubular necrosis; E11.22 Type 2 diabetes mellitus with diabetic chronic kidney disease; D62 Acute posthemorrhagic anemia; E86.1 Hypovolemia; I12.9 Hypertensive chronic kidney disease with stage 1 through stage 4 chronic kidney disease, or unspecified chronic kidney disease; N18.9 Chronic kidney disease, unspecified; E78.5 Hyperlipidemia, unspecified; F32.A Depression, unspecified; E87.5 Hyperkalemia; Z79.4 Long term (current) use of insulin
CPT/HCPCS: 36415; 80048; 80053; 80076; 81003; 82150; 83690; 83735; 84300; 85025; 85610; 85730; 86886; 86900; 86901; 96374; 99285